=== PATIENT | female | born 1985 | race Caucasian/White ===

== ENCOUNTER 2016-08-11 11:28 | Emergency (ER) | payer MEDICAID ==
[~2016-08-11] VITALS: Ht 182.9 cm; Wt 82.0 kg
[~2016-08-11 11:28] MED LIST: ALPR1TAB2 PO; BUPR1FIL3 PO; GABA300C10 PO; MELO-184 PO; MIRT45TA3 PO; VENL150C PO
[2016-08-11 12:35] LABS: BLOOD UREA NITROGEN 8 mg/dL (7-18)
[2016-08-11 13:59] VITALS: BP 115/72
== END 2016-08-11 14:02 | disposition home or self-care (01) ==
LOC: ED 13:00
DX: L03.113 Cellulitis of right upper limb (principal); M25.511 Pain in right shoulder; M25.411 Effusion, right shoulder
CPT/HCPCS: 36415; 80048; 84550; 85025; 85651; 86141; 99285

== ENCOUNTER 2016-09-21 23:18 | Emergency (ER) | payer MEDICAID ==
[~2016-09-21] VITALS: Ht 182.9 cm; Wt 80.1 kg
[2016-09-21 23:19] VITALS: BP 135/80
[2016-09-21] MEDS ORDERED: OXYC-229 PO (23:44)
[2016-09-21] MEDS ORDERED: METH10TA4 PO (23:45)
[2016-09-21] MEDS ORDERED: ARIP20TA8 PO (23:46)
[2016-09-21] MEDS ORDERED: KETOROLAC 30 MG/1 ML ONE (23:49)
[2016-09-22] MEDS ORDERED: KETOROLAC 30 MG/1 ML IM ONE
== END 2016-09-22 00:17 | disposition home or self-care (01) ==
LOC: ED 23:59
DX: M51.36 Other intervertebral disc degeneration, lumbar region (principal); Z90.49 Acquired absence of other specified parts of digestive tract; M79.7 Fibromyalgia
CPT/HCPCS: 96372; 99283; J1885; J7512

== ENCOUNTER 2017-11-20 20:34 | Emergency (ER) | payer MEDICAID ==
[~2017-11-20] VITALS: Ht 182.9 cm; Wt 74.8 kg
[~2017-11-20 20:34] MED LIST changes: +ARIP20TA5 PO; +HALO1TAB PO; -MELO-184 PO; +MELO15TA24 PO; +METH10TA4 PO; +OXYC-307 PO
[2017-11-20] MEDS ORDERED: DIPH,PERTUSS(ACELL),TET VAC/PF 0.5 ML IM-VACC ONE ×2 (21:00→21:10)
[2017-11-20] MEDS ORDERED: SODIUM CHLORIDE FLUSH 10ML SYR IVF ONE (21:00)
[2017-11-20 21:02] LABS: BASOPHILS # (AUTO) 0.05 x10^3/uL (0-0.1); BASOPHILS % (AUTO) 1 % (0-1); EOSINOPHILS # (AUTO) 0.26 x10^3/uL (0-0.4); EOSINOPHILS % (AUTO) 2 % (1-7); LYMPHOCYTES # (AUTO) 2.22 x10^3/uL (1-3.4); LYMPHOCYTES % (AUTO) 20 % (22-44); MD NO; MEAN CORPUSCULAR HEMOGLOBIN 29.5 pg (27.0-34.8); MEAN CORPUSCULAR HGB CONC 33.3 g/dL (32.4-35.8); MEAN CORPUSCULAR VOLUME 88.6 fL (80-100); MEAN PLATELET VOLUME 8.2 fL (7.4-10.4); MONOCYTES # (AUTO) 0.67 x10^3/uL (0.2-0.8); MONOCYTES % (AUTO) 6 % (2-9); NEUTROPHILS # (AUTO) 7.69 x10^3/uL (1.8-6.8); NEUTROPHILS % (AUTO) 71 % (42-75); PLATELET COUNT 365 x10^3/uL (130-400); RED BLOOD COUNT 4.78 x10^6/uL (3.82-5.3); RED CELL DISTRIBUTION WIDTH 13.2 % (9.6-15.2)
[2017-11-20] MEDS ORDERED: LIDOCAINE 1%-EPI 1:100K, 20ML ONE (21:10)
[2017-11-20 21:14] LABS: ALANINE AMINOTRANSFERASE 22 U/L (12-78); ALBUMIN 3.7 g/dL (3.4-5.0); ANION GAP 10 mmol/L (5-15); CALCIUM 8.4 mg/dL (8.5-10.1); CHLORIDE 100 mmol/L (98-107)
[2017-11-20 21:18] LABS: ALKALINE PHOSPHATASE 139 U/L (45-117); BILIRUBIN,TOTAL 0.4 mg/dL (0.2-1.0); TOTAL PROTEIN 7.7 g/dL (6.4-8.2)
[2017-11-20] MEDS ORDERED: LIDOCAINE-MPF 1%, 5ML INFIL ONE (21:30)
[2017-11-20] MEDS ORDERED: SODIUM CHLORIDE 0.9% 1,000ML IVBOLUS ONE (21:30)
[2017-11-20] MEDS ORDERED: LORazepam 2 MG/ML, 1ML ONE (21:40)
[2017-11-20] MEDS ORDERED: LORazepam 2 MG/ML, 1ML IVPush ONE (22:00)
[2017-11-20 22:21] VITALS: BP 119/74
== END 2017-11-20 22:32 | disposition home or self-care (01) ==
LOC: ED 22:20
DX: L02.415 Cutaneous abscess of right lower limb (principal)
CPT/HCPCS: 10060; 36415; 80053; 83605; 84703; 85025; 87040; 90471; 90715; 96374; 99284; J2060; J7030

== ENCOUNTER 2017-11-23 12:15 | Emergency (ER) | payer MEDICAID ==
[~2017-11-23] VITALS: Ht 182.9 cm; Wt 75.0 kg
[2017-11-23 12:18] VITALS: BP 137/74
[2017-11-23] MEDS ORDERED: ONDANSETRON ODT 4 MG ONE (12:54)
[2017-11-23] MEDS ORDERED: ONDANSETRON ODT 4 MG PO ONE (13:00)
[2017-11-23] MEDS ORDERED: LIDOCAINE 1%-EPI 1:100K, 20ML SQ ONE (13:00)
[2017-11-23] MEDS ORDERED: LIDOCAINE 1%-EPI 1:100K, 20ML ONE (13:01)
[2017-11-23 14:18] LABS: BASOPHILS # (AUTO) 0.01 x10^3/uL (0-0.1); EOSINOPHILS % (AUTO) 4 % (1-7); MD NO; MEAN CORPUSCULAR HEMOGLOBIN 29.1 pg (27.0-34.8); PLATELET COUNT 252 x10^3/uL (130-400)
[2017-11-23] MEDS ORDERED: LORazepam 2 MG/ML, 1ML IM ONE (14:30)
[2017-11-23 14:38] LABS: ANION GAP 10 mmol/L (5-15); CALCIUM 8.4 mg/dL (8.5-10.1); CHLORIDE 106 mmol/L (98-107); CREATININE 0.54 mg/dL (0.55-1.02)
[2017-11-23 14:45] LABS: BASOPHILS % (AUTO) 0 % (0-1); EOSINOPHILS # (AUTO) 0.18 x10^3/uL (0-0.4); LYMPHOCYTES # (AUTO) 0.49 x10^3/uL (1-3.4); LYMPHOCYTES % (AUTO) 9 % (22-44); MEAN CORPUSCULAR VOLUME 87.9 fL (80-100); MEAN PLATELET VOLUME 8.6 fL (7.4-10.4); MONOCYTES # (AUTO) 0.25 x10^3/uL (0.2-0.8); MONOCYTES % (AUTO) 5 % (2-9); NEUTROPHILS # (AUTO) 4.36 x10^3/uL (1.8-6.8); NEUTROPHILS % (AUTO) 82 % (42-75); RED BLOOD COUNT 4.37 x10^6/uL (3.82-5.3); RED CELL DISTRIBUTION WIDTH 13.7 % (9.6-15.2)
== END 2017-11-23 15:37 | disposition home or self-care (01) ==
LOC: ED 12:55
DX: L02.415 Cutaneous abscess of right lower limb (principal); R10.84 Generalized abdominal pain; F17.210 Nicotine dependence, cigarettes, uncomplicated
CPT/HCPCS: 36415; 80048; 82040; 85025; 99284; J3490; Q0162